=== PATIENT | female | born 1945 | race Caucasian/White ===

== ENCOUNTER 2017-11-20 09:40 | Inpatient (IN) ==
[2017-11-20] MEDS ORDERED: ASPIRIN 325 MG TABLET PO STA (10:14)
[2017-11-20 10:52] LABS: Basophils % 0.2 % (0.0-0.8); Eosinophils # 0.2 10*3/uL (0.0-0.87); Eosinophils % 1.6 % (0.00-10.9); Hematocrit 43.1 VOL% (35.7-47.0); Hemoglobin 14.4 GM/DL (12.0-16.0); Immature Granulocytes % 0.3 %; Immature Granulocytes Absolute 0.04 #; Lymphocytes # 3.1 10*3/uL (1.4-4.0); Lymphocytes % 23.1 % (21.3-54.2); Mean Corpuscular HGB Conc 33.4 GM/DL (32-36); Mean Corpuscular Hemoglobin 31 PG (27-34); Mean Corpuscular Volume 92.3 FL (87-102); Mean Platelet Volume 10.3 FL (9.6-12.0); Monocytes % 7.4 % (1.7-12.7); Neutrophils % 67.4 % (38.7-73.9); Platelet Count 418 T/CUMM (130-400); Red Blood Count 4.67 MC/CUMM (3.8-5.5); Red Cell Distribution Width 14.5 % (9.3-17.3); White Blood Count 13.3 T/CUMM (4-12)
[2017-11-20 11:01] LABS: INR 0.9; Partial Thromboplastin Time 25.6 SECS (0-40)
[2017-11-20 11:34] LABS: Alanine Aminotransferase 25 U/L (13-56); Albumin 4.1 G/DL (3.4-5.0); Alkaline Phosphatase 121 U/L (45-117); Aspartate Amino Transferase 25 U/L (0-37); Blood Urea Nitrogen 13 MG/DL (7-18); Calcium 8.6 MG/DL (8.5-10.1); Glucose 136 MG/DL (74-106); Osmolality,Calculated 280.4 MOS/KG (273-304); Potassium 3.8 MMOL/L (3.5-5.1); Sodium 140 MMOL/L (136-145); Total Protein 7.4 G/DL (6.4-8.3)
[2017-11-20 11:58] LABS: Apearance,Urine Slightly Hazy (Clear); Bacteria,Urine Occasional /HPF (Few); Bilirubin,Urine Negative (Negative); Blood, Urine Small mg/dL (Negative); Glucose,Urine (UA) Negative (Negative); Ketones,Urine Negative (Negative); Mucus,Urine Occasional /LPF (Occasional); Nitrite,Urine Negative (Negative); Protein,Urine Negative; RBC,Urine 5 /HPF (0-4); Squamous Epithelial Cell,Urine Occasional /HPF (0-10); Urine Color Yellow (Yellow); Urine Specific Gravity 1.006 (1.001-1.035); Urine Urobilinogen < 2.0 EU/DL (0.2-1.0); WBC,Urine 7 /HPF (0-6)
[2017-11-20 12:10] LABS: Barbiturates Screen,Urine Negative (Negative); Benzodiazepines Screen,Urine Negative (Negative); Cannabinoid Screen,Urine Negative (Negative); Opiate Screen,Urine Negative (Negative); Phencyclidine Screen,Urine Negative (Negative)
[2017-11-20] MEDS ORDERED: ONDANSETRON 4 MG/2 ML VIAL IV PRN (12:29)
[2017-11-20 13:03] LABS: Risk Ratio 3.16; Thyroid Stimulating Hormone 0.168 uIU/ml (0.358-3.74); VLDL CHOLESTEROL 21.8 MG/DL
[2017-11-20] MEDS ORDERED: NITROGLYCERIN SL 0.4 MG TABLET SL PRN (13:23)
[2017-11-20] MEDS ORDERED: traMADol 50 MG TABLET PO PRN (13:23)
[2017-11-20] MEDS: cefTRIAXone 1,000 MG in SYRINGE 1 EACH IV SCH (16:13)
[2017-11-20] MEDS: SODIUM CHLORIDE 0.9% 1,000 ML IV SCH (16:33)
[2017-11-20] MEDS ORDERED: MORPHINE 4 MG/1 ML VIAL IV PRN (19:50)
[2017-11-20] MEDS ORDERED: ENOXAPARIN 60 MG/0.6 ML SYRINGE SUBCUT ONE (19:55)
[2017-11-20] MEDS ORDERED: TEMAZEPAM 15 MG CAPSULE PO SCH (21:00)
[2017-11-20] MEDS ORDERED: ATORVASTATIN 80 MG TABLET PO SCH (21:00)
[2017-11-20] MEDS ORDERED: MAGNESIUM OXIDE 400 MG TABLET PO SCH (21:00)
[2017-11-20] MEDS ORDERED: tiZANidine 4 MG TABLET PO SCH (21:00)
[2017-11-20] MEDS: POTASSIUM GLUCONATE 500 MG TABLET PO SCH (21:08)
[2017-11-20] MEDS: TOPIRAMATE 25 MG TABLET PO SCH (21:10)
[2017-11-21] MEDS ORDERED: SODIUM CHLORIDE 0.9% 250 ML IV ONE (00:21)
[2017-11-21] MEDS: SODIUM CHLORIDE 0.9% 1,000 ML IV SCH (02:12)
[2017-11-21 05:43] LABS: Basophils % 0.3 % (0.0-0.8); Eosinophils # 0.4 10*3/uL (0.0-0.87); Eosinophils % 4.3 % (0.00-10.9); Hematocrit 35.7 VOL% (35.7-47.0); Hemoglobin 12.2 GM/DL (12.0-16.0); Immature Granulocytes % 0.2 %; Immature Granulocytes Absolute 0.02 #; Lymphocytes # 3.4 10*3/uL (1.4-4.0); Lymphocytes % 36.9 % (21.3-54.2); Mean Corpuscular HGB Conc 34.2 GM/DL (32-36); Mean Corpuscular Hemoglobin 31 PG (27-34); Mean Corpuscular Volume 90.8 FL (87-102); Mean Platelet Volume 10.9 FL (9.6-12.0); Monocytes # 1.1 10*3/uL (0.11-0.8); Monocytes % 11.6 % (1.7-12.7); Neutrophils # 4.3 10*3/uL (1.4-7.4); Neutrophils % 46.7 % (38.7-73.9); Platelet Count 360 T/CUMM (130-400); Red Blood Count 3.93 MC/CUMM (3.8-5.5); Red Cell Distribution Width 14.6 % (9.3-17.3); White Blood Count 9.2 T/CUMM (4-12)
[2017-11-21] MEDS: LEVOTHYROXINE 112 MCG TABLET PO SCH ×2 (06:18→09:56)
[2017-11-21 06:26] LABS: Calcium 8.1 MG/DL (8.5-10.1); Potassium 3.3 MMOL/L (3.5-5.1)
[2017-11-21] MEDS ORDERED: METOPROLOL SUCCINATE XL 25 MG TABLET PO SCH (09:00)
[2017-11-21] MEDS ORDERED: ASPIRIN EC 81 MG TABLET PO SCH ×2 (09:00)
[2017-11-21] MEDS ORDERED: COENZYME Q10 100 MG CAPSULE PO SCH (09:00)
[2017-11-21] MEDS ORDERED: PANTOPRAZOLE 40 MG TABLET PO SCH (09:00)
[2017-11-21] MEDS ORDERED: CLOPIDOGREL 75 MG TABLET PO SCH (09:00)
[2017-11-21] MEDS ORDERED: FUROSEMIDE 80 MG TABLET PO SCH (09:00)
[2017-11-21] MEDS: TOPIRAMATE 25 MG TABLET PO SCH (09:56)
[2017-11-21] MEDS: POTASSIUM GLUCONATE 500 MG TABLET PO SCH (09:56)
[2017-11-21] MEDS: cefTRIAXone 1,000 MG in SYRINGE 1 EACH IV SCH (09:57)
[2017-11-21] MEDS ORDERED: SODIUM CHLORIDE 0.9% 1,000 ML IV ONE (12:00)
[2017-11-21 12:11] VITALS: BP 125/73
[2017-11-21] MEDS ORDERED: POTASSIUM CHLORIDE 20 MEQ TABLET PO ONE (12:30)
[2017-11-21] MEDS ORDERED: ENOXAPARIN 40 MG/0.4 ML SYRINGE SUBCUT SCH (21:00)
== END 2017-11-21 16:17 | disposition home or self-care (01) | DRG 74 ==
LOC: N.ED 09:40 → N.EDINP 12:10 → N.2E 13:00
PROVIDERS: ADMIT Internal Medicine; ATTEND Internal Medicine

== ENCOUNTER 2020-08-02 13:49 | Observation (INO) ==
[2020-08-02 15:01] LABS: Basophils # 0.1 10*3/uL (0.0-0.2); Basophils % 0.6 % (0.0-0.8); Eosinophils # 0.3 10*3/uL (0.0-0.87); Eosinophils % 3.8 % (0.00-10.9); Hematocrit 44.1 VOL% (35.7-47.0); Hemoglobin 14.6 GM/DL (12.0-16.0); Immature Granulocytes % 0.2 %; Immature Granulocytes Absolute 0.02 #; Lymphocytes # 3.7 10*3/uL (1.4-4.0); Lymphocytes % 43.5 % (21.3-54.2); Mean Corpuscular HGB Conc 33.1 GM/DL (32-36); Mean Corpuscular Volume 91.3 FL (87-102); Mean Platelet Volume 10.4 FL (9.6-12.0); Monocytes % 13.1 % (1.7-12.7); Neutrophils % 38.8 % (38.7-73.9); Platelet Count 378 T/CUMM (130-400); Red Blood Count 4.83 MC/CUMM (3.8-5.5); White Blood Count 8.4 T/CUMM (4-12)
[2020-08-02 15:37] LABS: Alanine Aminotransferase 39 U/L (13-56); Albumin 3.9 G/DL (3.4-5.0); Alkaline Phosphatase 84 U/L (45-117); Aspartate Amino Transferase 40 U/L (0-37); Bilirubin,Total < 0.39 MG/DL (0.2-1.0); Blood Urea Nitrogen 16 MG/DL (7-18); Calcium 8.7 MG/DL (8.5-10.1); Estimated Glom Filtration Rate 0 ML/MIN; Glucose 134 MG/DL (74-106); Osmolality,Calculated 279.5 MOS/KG (273-304); Total Protein 7.7 G/DL (6.4-8.3)
[2020-08-02 17:06] LABS: Ferritin 47.4 ng/ml (8-252)
[2020-08-02] MEDS ORDERED: ONDANSETRON 4 MG/2 ML VIAL IV PRN (17:16)
[2020-08-02] MEDS ORDERED: guaiFENesin/DM ER 600-30 MG TABLET PO PRN (17:16)
[2020-08-02] MEDS ORDERED: hydrALAZINE 20 MG/1 ML VIAL IV PRN (17:16)
[2020-08-02] MEDS ORDERED: MORPHINE 4 MG/1 ML VIAL IV PRN (17:16)
[2020-08-02] MEDS ORDERED: DEXTROSE 50% 25 GM/50 ML VIAL IV PRN (17:16)
[2020-08-02] MEDS ORDERED: ACETAMINOPHEN 325 MG TABLET PO PRN (17:16)
[2020-08-02] MEDS ORDERED: GLUCAGON 1 MG VIAL IM PRN (17:16)
[2020-08-02] MEDS ORDERED: traZODone 50 MG TABLET PO PRN (17:16)
[2020-08-02] MEDS ORDERED: ZALEPLON 5 MG CAPSULE PO PRN (17:16)
[2020-08-02] MEDS ORDERED: NITROGLYCERIN SL 0.4 MG TABLET SL PRN (17:17)
[2020-08-02] MEDS ORDERED: traMADol 50 MG TABLET PO PRN (17:17)
[2020-08-02] MEDS ORDERED: hydrALAZINE 20 MG/1 ML VIAL IV STA (17:18)
[2020-08-02] MEDS ORDERED: hydrALAZINE 20 MG/1 ML VIAL ONE (17:26)
[2020-08-02] MEDS ORDERED: ENOXAPARIN 40 MG/0.4 ML SYRINGE SUBCUT SCH (21:00)
[2020-08-02] MEDS ORDERED: TEMAZEPAM 15 MG CAPSULE PO SCH (21:00)
[2020-08-02] MEDS ORDERED: ROSUVASTATIN 20 MG TABLET PO SCH (21:00)
[2020-08-02] MEDS ORDERED: MAGNESIUM OXIDE 400 MG TABLET PO SCH (21:00)
[2020-08-02] MEDS ORDERED: POTASSIUM 99 MG PO SCH (21:00)
[2020-08-02] MEDS: metFORMIN 500 MG TABLET PO SCH (23:03)
[2020-08-03] MEDS ORDERED: LEVOTHYROXINE 112 MCG TABLET PO SCH (07:00)
[2020-08-03 07:02] LABS: Basophils % 0.4 % (0.0-0.8); Eosinophils # 0.4 10*3/uL (0.0-0.87); Eosinophils % 3.6 % (0.00-10.9); Hematocrit 39.7 VOL% (35.7-47.0); Immature Granulocytes % 0.2 %; Immature Granulocytes Absolute 0.02 #; Lymphocytes # 3.2 10*3/uL (1.4-4.0); Lymphocytes % 30.3 % (21.3-54.2); Mean Corpuscular HGB Conc 31.5 GM/DL (32-36); Mean Platelet Volume 10.4 FL (9.6-12.0); Monocytes % 12.1 % (1.7-12.7); Neutrophils % 53.4 % (38.7-73.9); Platelet Count 326 T/CUMM (130-400); Red Blood Count 4.18 MC/CUMM (3.8-5.5); Red Cell Distribution Width 14.2 % (9.3-17.3); White Blood Count 10.4 T/CUMM (4-12)
[2020-08-03 07:05] LABS: Hemoglobin 12.5 GM/DL (12.0-16.0)
[2020-08-03 07:08] LABS: Albumin 3.1 G/DL (3.4-5.0); Bilirubin,Total 0.4 MG/DL (0.2-1.0); Calcium 8.2 MG/DL (8.5-10.1); Osmolality,Calculated 276.5 MOS/KG (273-304); Risk Ratio 1.97; Thyroid Stimulating Hormone 0.278 uIU/ml (0.358-3.74); Total Protein 6.3 G/DL (6.4-8.3); VLDL CHOLESTEROL 21.4 MG/DL
[2020-08-03] MEDS ORDERED: INSULIN LISPRO 100 UNIT/ML SUBCUT SCH (07:30)
[2020-08-03] MEDS: metFORMIN 500 MG TABLET PO SCH (08:37)
[2020-08-03] MEDS ORDERED: POTASSIUM CHLORIDE 20 MEQ TABLET PO ONE (08:38)
[2020-08-03] MEDS ORDERED: OMEGA 3 ACID ETHYL ESTERS 1 GM CAPSULE PO SCH (09:00)
[2020-08-03] MEDS ORDERED: METOPROLOL SUCCINATE XL 50 MG TABLET PO SCH (09:00)
[2020-08-03] MEDS ORDERED: LOSARTAN 25 MG TABLET PO SCH (09:00)
[2020-08-03] MEDS ORDERED: PANTOPRAZOLE 40 MG TABLET PO SCH (09:00)
[2020-08-03] MEDS ORDERED: ASPIRIN EC 81 MG TABLET PO SCH (09:00)
[2020-08-03] MEDS ORDERED: VENLAFAXINE XR 75 MG CAPSULE PO SCH (09:00)
[2020-08-03] MEDS ORDERED: CLOPIDOGREL 75 MG TABLET PO SCH (09:00)
[2020-08-03] MEDS ORDERED: BROMELAINS 500 MG PO SCH (09:00)
[2020-08-03 11:09] VITALS: BP 126/63
== END 2020-08-03 12:01 | disposition home or self-care (01) ==
LOC: N.EDINP 13:49 → N.ED 13:49 → SUATTDRO 17:16 → N.EDINP 20:31 → N.2E 22:02
PROVIDERS: ADMIT Phlebology; ATTEND Internal Medicine